=== PATIENT | male | born 1960 | race Caucasian/White ===

== ENCOUNTER 2024-05-16 10:03 | Emergency (ER) | payer OTHER ==
[~2024-05-16] VITALS: Ht 160 cm; Wt 83.9 kg
[2024-05-16 10:08] VITALS: BP 162/100; TEMP 98.4; O2SAT 96
== END 2024-05-16 10:21 ==
LOC: ER 10:05
DX: Z02.89 Encounter for other administrative examinations (principal); E78.5 Hyperlipidemia, unspecified; I10 Essential (primary) hypertension; G89.29 Other chronic pain